=== PATIENT | female | born 1940 | race Caucasian/White ===

== ENCOUNTER 2018-05-12 13:39 | Day surgery (SDC) | payer MEDICARE, SELFPAY ==
[2018-05-04 12:35] VITALS: BMI 27.6
[2018-05-12] VITALS (7 sets, daily range): BP systolic 129–153; BP diastolic 68–87; PULSE 80–104; RESP 12–16; TEMP 36.1–36.6; O2SAT 95–97; BMI 27.6
--- NOTE | 2018-05-12 | DI.RAD.S_ITS ---
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 COMPARISON: [facility] Outside Film, MR, MR CERVICAL SPINE WITHOUT CONTRAST, 04/19/2018, 11:00. FINDINGS: Intraoperative intervertebral disc spacer present at what appears to be C6-7. There is good anatomic alignment hardware appears intact. IMPRESSION: Intraoperative images as above. Dictated by: Nory Gilliland M.D. on 05/12/2018 at 16:52 Approved by: Nory Gilliland M.D. on 05/12/2018 at 16:52
--- NOTE | 2018-05-12 15:00 | PM.PREOP ---
Pre-operative Note Interval Note Pre-op Check: Yes History & Physical Reviewed by Physician and Yes Exam Performed Changes: No
[2018-05-12] MEDS: LACTATED RINGERS 1,000 ML 42 ML IV (15:11)
[2018-05-12] MEDS: CEFAZOLIN 2 GM/100 ML FROZ.PIGGY IV (15:16)
--- NOTE | 2018-05-12 15:40 | SUR.OPER ---
Supine, head on gel donut. Arms padded with gel pads, tucked at sides, towel roll under shoulders. Safety belt at thigh. Legs uncrossed.
[2018-05-12] MEDS: BUPIVACAINE 0.5% (PF) VIAL 30 ML INJ (15:52)
[2018-05-12] MEDS: SODIUM CHLORIDE 0.9% 1,000 ML, GENTAMICIN 80 MG IRR (15:52)
[2018-05-12] MEDS: THROMBIN (BOVINE) 5,000 UNIT VIAL 5000 UNIT TOP (15:57)
--- NOTE | 2018-05-12 16:12 | P.OP_ITS ---
Operative Date/Time/Diagnoses Date of procedure: 05/12/18 Time of procedure: 16:11 Pre-op diagnosis: Cervical disc herniation with radiculopathy Post-op diagnosis: same Procedure & Clinicians Procedure: C6-7 anterior cervical diskectomy and artificial disc replacement Use of microscope Same procedure as scheduled: Yes Indications: [age] year old female with intractable pain from a cervical disc herniation. They had failed conservative management and requested operative intervention. Risks and benefits of surgery were discussed and appropriate consents were obtained. Surgeon: Donald Coe Sales Account Representative: Charity Campuzano Anesthesia Type: General Operative Notes Findings: none Closure Type: primary Specimen(s): none sent Implants & Drains: Norris LDR Mobi-C Estimated Blood Loss (mL): 5 Blood products transfused: none Procedure in detail: Patient was brought to the operating room and intubated on the table. A time-out was performed. Preoperative antibiotics were given. The neck was prepped and draped in the standard sterile fashion. Using a skin fold, we made a 3 cm oblique incision on the left side. We used Bovie to go through the platysma and then did a standard anterolateral blunt dissection down to the precervical fascia. Fascia was nicked and elevated up. A marker was placed and x-ray was taken for localization. We then subperiosteally elevated up the longus colli muscles. Self-retaining retractors were placed. [employer] pins were placed under x-ray guidance to be parallel to the endplates. We then brought in the microscope. A scalpel used to perform an annulotomy. We then used a combination of pituitaries and curettes and Kerrison to perform a complete anterior diskectomy at C6-7. We took down the PLL and used a nerve hook to fish out the large disc herniation. At the end we could from the nerve hook cephalad caudally and out the foramen and everything was opened. We distracted open with the parallel web user experience strategist. We then used the horseshoes for sizing. We then used the trials. We then inserted a 13 mm x 15 mm x 5 mm size Mobi-C artificial disc replacement under fluoroscopic guidance for positioning. The traction was released and x-ray was checked again. The self-retaining retractors and [employer] pins were removed and final x-rays taken. The wound was irrigated. There was no bleeding. The carotid was beating nicely. The platysma was closed. The superficial was closed. The skin was closed. A sterile dressing was placed. They were then extubated and brought to recovery room with no complications. Complications: none Condition: stable Disposition: PACU Plan for aftercare: Outpatient. Soft collar for comfort. Ten lb maximum lifting.
--- NOTE | 2018-05-12 16:50 | SUR.PHASEI ---
report given to Selma Tolliver RN
[2018-05-12] MEDS: HYDROCODONE/ACET 5/325 TABLET 1 TAB PO (16:57)
--- NOTE | 2018-05-12 17:19 | SUR.PHASEI ---
assumed care from andreai, dressing to neck c/d/i, soft collar intact, vss, maew no numbness or tingling and speech is clear and swallow intact. medicated with one norco after applesauce tolerated with no nausea. to opd.
--- NOTE | 2018-05-12 17:42 | SUR.PHASEII ---
Assumed care. Pt denied pain. Neck drsg cdi. Cervical collar in place. CMS wnl. Call light within reach. Spouse at bedside. Coffee and applesauce at bedside.
--- NOTE | 2018-05-12 18:42 | SUR.PHASEII ---
Pt's spouse left purse in waiting room. plant security guard stated it was locked in the safe. Registration said their co-worker was on break and she could not leave the desk. This RN waited with the patient until 1839 for the safe to open.
== END 2018-05-12 16:23 | disposition home or self-care (01) ==
PROVIDERS: PCP Family Medicine; Visit Provider Orthopaedic Surgery
PROC: (CPT 22856; principal; 2018-05-12 15:15)
DX: M50.10 Cervical disc disorder with radiculopathy, unspecified cervical region (principal)
CPT/HCPCS: 22856; 72040; 76000; C1776; J0690; J1100; J2250; J2405; J2704; J3010

== ENCOUNTER → 2018-06-15 09:35 | Outpatient (CLI) | payer MEDICARE, SELFPAY ==
--- NOTE | 2018-06-15 09:50 | DI.CT.S_ITS ---
PROCEDURE: CT ABDOMEN PELVIS WO CON INDICATIONS: left flank pain abdominal pain TECHNIQUE: Noncontrast 5 mm thick sections acquired from the diaphragms to the symphysis. 5 mm coronal and sagittal reformats were then performed. For radiation dose reduction, the following was used: automated exposure control, adjustment of mA and/or kV according to patient size. COMPARISON: [facility], CT, CT CHEST ABDOMEN PELVIS WITHOUT CONTRAST, 11/24/2017, 9:26. [facility], CT, CT ABDOMEN PELVIS WITHOUT CONTRAST, 12/26/2017, 10:50. FINDINGS: Image quality: Excellent. ABDOMEN: Lung bases: Lung bases are clear. Heart size is normal. Solid organs: Liver is normal in size. Gallbladder demonstrates minimal dependent calcification without wall thickening. Pancreas is normal in contours. Spleen is normal in size. No adrenal nodules. Significant right renal atrophy. There is mild left perirenal edema without obstruction. Left parapelvic cysts are noted. Ureteral diversion is noted. Peritoneum and bowel: Unenhanced bowel loops demonstrate normal wall thickness and caliber. No free fluid or air. Nodes and vessels: No retroperitoneal or mesenteric adenopathy by size criteria. Aorta and inferior vena cava are normal in caliber. Miscellaneous: No ventral hernias. PELVIS: Genitourinary: Bladder has been removed. Miscellaneous: No inguinal hernias or adenopathy. Bones: No suspicious bony lesions. No vertebral body compression fractures. IMPRESSION: 1. Minimal left renal edema and perinephric stranding without obstruction. This could represent a recently passed stone. Pyleonephritis cannot be excluded. Ultrasound or contrast CT is recommended for further evaluation. Dictated by: Nory Gilliland M.D. on 06/15/2018 at 10:25 Approved by: Nory Gilliland M.D. on 06/15/2018 at 11:26
== END ==
PROVIDERS: PCP Family Medicine; Visit Provider Physician Assistant
DX: R10.32 Left lower quadrant pain (principal)
CPT/HCPCS: 36415; 74176; 80053; 85025

== ENCOUNTER → 2018-06-15 09:57 | Outpatient (CLI) | payer MEDICARE, SELFPAY ==
[2018-06-15 10:24] LABS: Add Manual Diff / Slide Review NO; Basophils Percent Auto 0.8 % (0-2); Eosinophils Percent Auto 1.9 % (2-4); Hematocrit 40.9 % (36-46); Hemoglobin 14.3 g/dL (12.0-16.0); Lymphocytes Percent Auto 24.3 % (25-40); Mean Corpuscular HGB Conc 34.9 % (30-36); Mean Corpuscular Hemoglobin 32.2 PG (26-34); Mean Corpuscular Volume 92.4 fL (80-100); Monocytes Percent Auto 9.9 % (3-14); Neutrophils Absolute Auto 3500 /uL (3000-5900); Neutrophils Percent Auto 63.1 % (50-75); Platelet Count 255 X10^3/uL (150-400); Red Blood Cell Count 4.42 X10^6/uL (4.0-5.2); Red Cell Distribution Width 12.7 % (11.6-14.8); White Blood Cell Count 5.5 X10^3/uL (4.5-11.0)
[2018-06-15 10:58] LABS: Alanine Aminotransferase 20 IU/L (9-52); Albumin 4.3 g/dL (3.5-5.0); Albumin Globulin Ratio 1.5 (1.0-2.8); Alkaline Phosphatase 66 U/L (38-126); Aspartate Aminotransferase 23 IU/L (14-36); BUN Creatinine Ratio 14.6 (6-22); Bilirubin Total 0.6 mg/dL (0.2-1.3); Blood Urea Nitrogen 19 mg/dL (7-17); Calcium 9.7 mg/dL (8.4-10.2); Carbon Dioxide 25 mmol/L (22-32); Chloride 107 mmol/L (98-107); Estimated Glomerular Filt Rate 39.8 mL/min (>60); Globulin 2.9 g/dL (1.7-4.1); Glucose 107 mg/dL (80-110); HEMOLYSIS 25 (0-50); Potassium 5.2 mmol/L (3.4-5.1); Sodium 144 mmol/L (137-145); Total Protein 7.2 g/dL (6.3-8.2)
== END ==
PROVIDERS: PCP Family Medicine; Visit Provider Physician Assistant
DX: R10.32 Left lower quadrant pain (principal)
CPT/HCPCS: 36415; 80053; 85025

== ENCOUNTER → 2018-06-16 09:20 | Outpatient (CLI) | payer MEDICARE, SELFPAY ==
[2018-06-16 10:12] LABS: Appearance Urine UA CLOUDY; Bilirubin Urine UA NEGATIVE (NEGATIVE); Color Urine UA YELLOW; Glucose Urine UA NEGATIVE (Normal); Ketones Urine UA NEGATIVE (NEGATIVE); Leukocyte Esterase Urine UA 3+ (NEGATIVE); Nitrite Urine UA NEGATIVE (Negative); Occult Blood Urine UA TRACE-INTACT (Negative); Protein Urine UA NEGATIVE (Negative); Urobilinogen Urine UA 0.2 E.U./dL (0.2); pH Urine UA 6.5 (4.5-8.0)
[2018-06-16 10:51] LABS: Amorphous Sediment Urine 1+; Bacteria Urine Many (>30); Culture Indicated Urine Specimen Cultured; RBC Urine 1-5/HPF (0-5/HPF); WBC Urine >100/HPF (0-5/HPF)
== END ==
PROVIDERS: PCP Family Medicine; Visit Provider Physician Assistant
DX: R10.32 Left lower quadrant pain (principal)
CPT/HCPCS: 81001; 87077; 87086; 87186

== ENCOUNTER → 2018-11-22 10:09 | Outpatient (CLI) | payer MEDICARE, SELFPAY ==
[2018-11-22 10:38] LABS: Appearance Urine UA CLOUDY; Bilirubin Urine UA NEGATIVE (NEGATIVE); Color Urine UA YELLOW; Glucose Urine UA NEGATIVE (Negative); Ketones Urine UA NEGATIVE (NEGATIVE); Leukocyte Esterase Urine UA 3+ (NEGATIVE); Nitrite Urine UA POSITIVE (Negative); Occult Blood Urine UA 1+ (Negative); Protein Urine UA NEGATIVE (Negative); Specific Gravity Urine UA 1.015 (1.000-1.035); Urobilinogen Urine UA 0.2 E.U./dL (0.2)
[2018-11-22 10:49] LABS: Hemoglobin A1C% w Est Avg Glu 5.2 % (4.0-6.0)
[2018-11-22 10:50] LABS: Add Manual Diff / Slide Review NO; Basophils Absolute Auto 0 /uL (0-100); Basophils Percent Auto 0.7 % (0-2); Eosinophils Absolute Auto 200 /uL (0-450); Eosinophils Percent Auto 3.4 % (2-4); Hematocrit 41.3 % (36-46); Hemoglobin 14.4 g/dL (12.0-16.0); Lymphocytes Absolute Auto 1600 /uL (1100-4500); Lymphocytes Percent Auto 31.2 % (25-40); Mean Corpuscular HGB Conc 34.7 % (30-36); Mean Corpuscular Volume 92.3 fL (80-100); Monocytes Absolute Auto 500 /uL (0-900); Neutrophils Absolute Auto 2700 /uL (1500-7000); Neutrophils Percent Auto 54.7 % (50-75); Platelet Count 272 X10^3/uL (150-400); Red Blood Cell Count 4.48 X10^6/uL (4.0-5.2); Red Cell Distribution Width 12.3 % (11.6-14.8)
[2018-11-22 10:53] LABS: Bacteria Urine Many (>30); Culture Indicated Urine Specimen Cultured; RBC Urine 1-5/HPF (0-5/HPF); Squamous Epithelial Cell Urine 0-1 /HPF (0-5/HPF); WBC Urine >100/HPF (0-5/HPF)
[2018-11-22 11:37] LABS: BUN Creatinine Ratio 14.3 (6-22); Blood Urea Nitrogen 20 mg/dL (7-17); Calcium 9.6 mg/dL (8.4-10.2); Carbon Dioxide 27 mmol/L (22-32); Chloride 103 mmol/L (98-107); Estimated Glomerular Filt Rate 36.6 mL/min (>60); Glucose 91 mg/dL (80-110); HEMOLYSIS < 15 (0-50); Potassium 4.9 mmol/L (3.4-5.1); Sodium 139 mmol/L (137-145)
== END ==
PROVIDERS: PCP Family Medicine; Visit Provider Orthopaedic Surgery
DX: Z01.818 Encounter for other preprocedural examination (principal); Z01.812 Encounter for preprocedural laboratory examination; N39.9 Disorder of urinary system, unspecified; R73.9 Hyperglycemia, unspecified; Z13.1 Encounter for screening for diabetes mellitus
CPT/HCPCS: 36415; 80048; 81001; 83036; 85025; 87077; 87086; 87186; 93005; 93010

== ENCOUNTER 2018-12-01 11:36 | Inpatient (IN) | payer MEDICARE, SELFPAY ==
[2018-11-24 09:47] VITALS: BMI 27.8
[2018-12-01] VITALS (12 sets, daily range): BP systolic 103–159; BP diastolic 44–84; PULSE 62–83; RESP 16–18; TEMP 36.1–36.6; O2SAT 81–100; BMI 27.6
--- NOTE | 2018-12-01 | DI.RAD.S_ITS ---
PROCEDURE: XR PELVIS 1-2V INDICATIONS: INNER OP 1 VIEW TECHNIQUE: Intra-operative view of the pelvis and hip acquired. [facility] [place] [place], [facility] PELVIS WITH LATERAL HIP RIGHT, 11/28/2018, 15:03. FINDINGS: Bones: Intraoperative devices prior to placement of arthroplasty prostheses are in expected positions. No fractures or suspicious bony lesions. Soft tissues: Overlying surgical retractors are present, along with other intraoperative changes. IMPRESSION: Intraoperative views of right hip arthroplasty. Dictated by: Nory Gilliland M.D. on 12/01/2018 at 16:36 Approved by: Nory Gilliland M.D. on 12/01/2018 at 16:36
--- NOTE | 2018-12-01 06:00 | DI.RAD.S_ITS ---
PROCEDURE: XR HIP W PEL IF DONE RT 2V INDICATIONS: prosthesis placement TECHNIQUE: AP pelvis and lateral view of the right hip acquired. COMPARISON: None. FINDINGS: Bones: Patient is status post right hip arthroplasty, with hardware components in expected positions. The hip joint appears congruent. The visualized bony structures appear intact. Soft tissues: Overlying postoperative changes are noted. No suspicious soft tissue densities. IMPRESSION: Normal alignment after right total hip arthroplasty with a surgical drain overlying the operative bed. Dictated by: Anup Alvarez M.D. on 12/01/2018 at 17:12 Approved by: Anup Alvarez M.D. on 12/01/2018 at 17:13
[2018-12-01] MEDS: LACTATED RINGERS 1,000 ML 42 ML IV (12:22)
[2018-12-01] MEDS: ACETAMINOPHEN 325 MG TABLET 975 MG PO ×2 (12:22→20:46)
[2018-12-01] MEDS: CELECOXIB 200 MG CAPSULE PO (12:23)
[2018-12-01] MEDS: VANCOMYCIN 1,000 MG/200 ML FROZ.PIGGY 200 MG IV (13:21)
--- NOTE | 2018-12-01 13:23 | SUR.PREOP ---
SPOKE WITH DR. HURTADO REGARDING PT ALLERGY TO PCN IN RELATION TO CURRENT ORDER FOR ANCEF FOR SURGERY. PER DR. HURTADO OK TO CONTINUE WITH CURRENT PLACE FOR ANCEF FOR SURGERY. COMMUNICATED THIS WITH CIRCULATING RN D[place]. ALSO DISCUSSED WITH DR. HURTADO PT ONLY HAS ONE FUNCTIONING KIDNEY IN RELATION TO VANCOMYCIN ORDER. PER DR. HURTADO, WOULD LIKE TO CONTINUE WITH CURRENT ORDER FOR VANCOMYCIN.
[2018-12-01] MEDS: CEFAZOLIN 2 GM/100 ML FROZ.PIGGY IV ×2 (14:09→21:52)
[2018-12-01] MEDS: TRANEXAMIC ACID 1,000 MG VIAL 1000 MG INJ ×2 (14:20→16:04)
[2018-12-01] MEDS: BUPIVACAINE 0.25% W/ EPI 30 ML VIAL 60 ML INJ (14:37)
[2018-12-01] MEDS: BUPIVACAINE LIPOSOME 266 MG/20 ML VIAL INJ ×2 (14:37→14:38)
[2018-12-01] MEDS: POVIDONE-IODINE 15 ML, SODIUM CHLORIDE 0.9% 250 ML TOP (14:39)
--- NOTE | 2018-12-01 14:45 | SUR.OPER ---
Lateral on padded OR bed. Gel axillary roll. Arms secured on padded armboard with pillow supporting top arm. Padded hip positioner braces x4 - anterior and posterior chest and pelvis. Additional gel pad used anterior pelvis. Gel pad under bottom leg from knee to foot and secured with tape over sheet.
--- NOTE | 2018-12-01 17:39 | PC.NURSE ---
Lizzy shift note: Patient arrived to room 226 at 1730 from PACU S/P left NIDIA scheduled by Dr. Gan. Awake, alert, and pleasant. Oriented to room, environment, and plan of care. Posterior Aqaucel CDI, Hemovac secured. at bedside providing supportive care. Call light within reach.
[2018-12-01] MEDS: LACTATED RINGERS 1,000 ML 125 ML IV (17:53)
[2018-12-01] MEDS: OXYCODONE IR 5 MG TABLET PO (20:19)
[2018-12-01] MEDS: ASPIRIN EC 81 MG TABLET PO (20:46)
--- NOTE | 2018-12-01 23:10 | PM.PREOP ---
Pre-operative Note Interval Note History & Physical reviewed/Exam performed by Physician: Yes Changes to H&P: No
--- NOTE | 2018-12-01 23:12 | P.OP_ITS ---
Operative Date/Time/Diagnoses Date of procedure: 12/01/18 Time of procedure: 14:51 Pre-op diagnosis: Severe right hip OA Post-op diagnosis: same Procedure & Clinicians Procedure: Right total hip arthroplasty Same procedure as scheduled: Yes Indications: The patient has had progressively worsening right hip pain with radiographic changes consistent with arthritis. Non-operative management has failed and the patient has requested total hip replacement. The risks, benefits and alternatives to surgery were discussed with the patient prior to proceeding. Risks discussed included, but were not limited to, failure to relieve pain, leg length discrepancy, dislocation, stiffness, infection, nerve damage, deep venous thrombosis, pulmonary embolism, stroke, coma, heart attack, permanent paralysis and , as well as the potential need for eventual revision of the prosthetic. Surgeon: Tyra Gan Groundwater Monitoring Technician: Marixa Adler Anesthesia Type: General and Spinal Operative Notes Findings: Severe right hip arthritis, adequate stability Closure Type: primary Specimen(s): none sent Prosthetic devices, grafts, tissues, transplants, or devices: Gan [employer] Nephew anthology size 6 standard offset, 36 by -3 femoral head, 52 mm R3 cup Applied: drain(s) Estimated Blood Loss (mL): 250 Blood products transfused: none Procedure in detail: The patient was seen in the pre-operative area, where the patient identified the left hip as the operative site and this was marked with my initials. The patient received pre-operative antibiotics and was taken to the operating room and placed on the operative table in the right lateral decubitus position after satisfactory anesthesia. A full time paramedic out was performed. The left leg was prepared from the ankle to the iliac crest with ChloroPrep in the usual fashion and draped through sterile drapes. The hip was approached through an approximately 20 cm incision centered over the greater trochanter and curving gently posteriorly as it went proximally. This was carried sharply to the fascia suzy, which was divided and retracted with a self retaining retractor. The trochanteric bursa was excised with care being taken to avoid the sciatic nerve, which was identified and protected throughout the case. The short external rotators were incised and the capsulomuscular flap was raised and tagged for later repair. The hip was dislocated, and a femoral neck osteotomy performed approximately 15 mm above the lesser trochanter. Retractors were placed around the femur. The canal was opened with a box cutting osteotome, followed by a T handled reamer and a lateralizing reamer. The chili pepper broach was then used, followed by sequential broaching until there was good stability of the broach in the femur. Retractors were placed to expose the acetabulum. The labrum and central soft tissues were removed. Reaming was performed initially going up in 2 mm increments, then 1 mm increments until good bite was obtained with an odd sized reamer. The cup 1 mm larger than the last reamer was then inserted using the appropriate anteversion guides. A trial neutral liner was placed. The broach was placed in the canal. A trial head and neck were then placed and the hip relocated and checked for leg length and stability. An intraoperative film confirmed the component position and no evidence of fracture. The patient was stable in the position of sleep, of squatting, and could be put through a range of motion with 45 degrees internal rotation without dislocation. At 90 degrees flexion, internal rotation to 60 was possible before dislocation. This was felt to be satisfactory and the appropriate components were opened, and the trials were removed. She was noted to be tight preoperatively and did have somewhat of a hip abduction contracture. I specifically checked her in detail to assess her overall stability and also to make sure that we did not excessively lengthen her. It was felt that her offset had been slightly increased. Her leg lengths appeared appropriate clinically and radiographically. I also specifically checked the stem to see if I could tap it down an additional 1-2 mm. The stem had good rotational and axial stability. Her hip had acceptable overall stability with a -3 neck. The acetabular liner was impacted into position. The final stem was then impacted into the prepared femoral canal. A brief Betadine soak was performed while trialing with head options. The hip was meticulously irrigated with normal saline. Finally the femoral head was impacted onto the stem. The acetabulum was cleared of all material and the hip relocated one final time. The capsulomuscular flap was then repaired to the greater trochanter though an awl hole using the tag sutures. The short external rotators were repaired with a nonabsorbable suture. A deep drain was placed and brought out anteriorly. The fascia suzy was closed with Vicryl. The subcutaneous layer was closed with barbed sutures and SteriStrips. An Aquacel Ag dressing was applied and the patient was taken to recovery having tolerated the procedure well. Complications: none Condition: stable Disposition: Acute Care Plan for aftercare: The patient will be maintained on a standard total hip replacement protocol with weight bearing as tolerated and posterior hip precautions. The patient will receive Aspirin and sequential compression devices for DVT prophylaxis. The patient will be discharged home when safe for the home environment.
[2018-12-02] MEDS: OXYCODONE IR 5 MG TABLET PO (02:19)
[2018-12-02] MEDS: LACTATED RINGERS 1,000 ML 125 ML IV (02:20)
[2018-12-02 04:05] VITALS: BP 100/44; PULSE 56; RESP 18; TEMP 36.4; O2SAT 98
[2018-12-02] MEDS: CEFAZOLIN 2 GM/100 ML FROZ.PIGGY IV (05:46)
[2018-12-02 06:52] LABS: Hematocrit 35.6 % (36-46); Hemoglobin 12.7 g/dL (12.0-16.0)
[2018-12-02 07:26] VITALS: BP 117/66; PULSE 59; RESP 16; TEMP 36.8; O2SAT 97
--- NOTE | 2018-12-02 08:25 | P.DS_ITS ---
History of Present Illness Date Patient Seen: 12/02/18 Time Patient Seen: 08:25 Chief complaint: [id number] Narrative: The patient has had progressively worsening right hip pain with radiographic changes consistent with arthritis. Non-operative management has failed and the patient has requested total hip replacement. The risks, benefits and alternatives to surgery were discussed with the patient prior to proceeding. Risks discussed included, but were not limited to, failure to relieve pain, leg length discrepancy, dislocation, stiffness, infection, nerve damage, deep venous thrombosis, pulmonary embolism, stroke, coma, heart attack, permanent paralysis and , as well as the potential need for eventual revision of the prosthetic. Discharge Providers Date of admission: 12/01/18 11:36 Discharge Date: 12/02/18 Primary care physician: Jane Bryan MD Consults: 12/01/18 06:00 Consult to Anesthesiology Routine Comment: Consulting Provider: Anesthesiologist Reason for consultation: Regional block for post operative pain control Has provider been notified: Yes 12/01/18 17:21 Consult to Discharge Planning Routine Comment: Consult to Physical Therapy Evaluate & Treat Comment: Physician Instructions: post op NIDIA protocol Consult to Respiratory Therapy Evaluate & Treat Comment: Physician Instructions: Evaluate and treat Discharge provider: Charity Campuzano PA-C Summary Discharge Diagnosis: s/p NIDIA Hospital Course: huong was admitted for a right total hip arthroplasty with Dr. Gan. Hospital course unremarkable. POD 1 doing very well. She has mobilized with physical therapy throughout her stay. She is eating voiding without difficulty or assistance. She has all her postoperative appointment scheduled with physical therapy. She has all her of her prescriptions at home. Exam Vital Signs (past 8 hours): - 12/02/18 04:05 Temperature 97.6 F Pulse Rate 56 L Respiratory Rate 18 Blood Pressure 100/44 L Pulse Oximetry 98 Fraction of Inspired Oxygen 21 Oxygen Delivery Method Room Air Oxygen Flow Rate 0 Narrative Exam Narrative: Patient is sitting up in bed in no acute distress. She is alert and oriented x3. Dressing on right hip is CDI. Calves are, compressible, nontender bilaterally. Pulses are symmetrical. Sensation intact light touch throughout bilateral extremities. She states she had no pain issues last night. No complaints this morning. Objective Labs Result Diagrams: 12/02/18 06:25 Labs: Laboratory Results - last 24 hr 12/02/18 06:25 Hgb 12.7 Hct 35.6 L Discharge Plan Discharge Plan Patient Disposition: Home Discharge Med Rec/Prescriptions Prescriptions: New acetaminophen 325 mg Tablet 975 mg PO TID Qty: 60 RF: 0 meloxicam [Mobic] 7.5 mg Tablet 15 mg PO DAILY Qty: 30 RF: 0 docusate sodium [DOK] 100 mg Capsule 100 mg PO BID Qty: 60 RF: 0 Continued metoprolol succinate 25 mg Tablet Extended Release 24 Hr 25 mg PO DAILY RF: 0 calcium carbonate [Calcium 600] 600 mg calcium (1,500 mg) Tablet 600 mg PO DAILY RF: 0 Changed aspirin 81 mg Tablet,Delayed Release (Dr/Ec) 81 mg PO BID Qty: 0 RF: 0 Follow up/Referrals: Tyra Gan MD [Physician] - Skin/Wound/Dressing Care Report to your healthcare provider any signs of infection, such as:: chills, fev er and increased pain Dressing: leave in place until appointment Visit Report/Discharge Packet Instructions: DI for Hip Replacement Discharge Data Primary Care Provider: Jane Bryan Attending Provider: Tyra Gan Admit Date/Time: 12/01/18 11:36
[2018-12-02] MEDS: ASPIRIN EC 81 MG TABLET PO (08:56)
[2018-12-02] MEDS: MELOXICAM 7.5 MG TABLET 15 MG PO (08:56)
[2018-12-02 08:57] VITALS: BP 117/66; PULSE 64
[2018-12-02] MEDS: METOPROLOL ER 25 MG TABLET PO (08:57)
[2018-12-02] MEDS: ACETAMINOPHEN 325 MG TABLET 975 MG PO (08:57)
--- NOTE | 2018-12-02 09:20 | PT.IIE ---
Current Diagnoses Unilateral primary osteoarthritis, right hip (12/01/18) Surgery Performed Operation Date: 12/01/18 13:45 Actual Procedures p Total Hip Arthroplasty(Right) - Tyra Gan MD Surgical History (Last Updated 11/24/18 @ 09:59 by Jami Beckett, RN) H/O total hysterectomy with bilateral salpingo-oophorectomy (BSO) (Acute) History of bladder surgery (Acute) Hx of cervical discectomy (Acute 05/12/18) Status post bilateral cataract extraction (Acute) Medical History (Last Updated 05/05/18 @ 12:09 by Jami Beckett, RN) Arthritis (Acute) Bladder cancer (Acute) CAD (coronary artery disease) (Acute) GERD (gastroesophageal reflux disease) (Acute) HTN (hypertension) (Acute) Hyperlipidemia (Acute) Left humeral fracture (Acute) Myocardial infarct (Acute) Non-functioning kidney (Acute) Numbness and tingling in right hand (Acute) Physical Therapy Inpatient Evaluation/Re-Eval M1 PT/OT-IP Prior Functional Status Start: 12/02/18 13:07 Freq: NEEDED Status: Active Protocol: Document 12/02/18 09:20 AB (Rec: 12/02/18 13:31 AB [id number]) Medical Review Prior Functional Status Medical History Reviewed Yes Communication able to make needs known Mobility and Gait pt stated that she is independent with all mobility and ambulation without AD Social History Household Members spouse Living Arrangements House Number of Floors (Floors) One Floor Number of Stairs To Enter/Railing? pt stays on main level of the house has 1 step to enter Home Environment High Toilet Walk in Shower Home Equipment Front Wheel Walker Straight Cane Shower Seat without Backrest Hand Held Shower Insurance Inspector Grab Bars Near Toilet Grab Bars In Shower Employment Status Retired M2 PT-IP Current Condition Start: 12/02/18 13:07 Freq: NEEDED Status: Active Protocol: Document 12/02/18 09:20 AB (Rec: 12/02/18 13:31 AB [id number]) Physical Therapy Current Condition Current Condition Evaluation Date 12/02/18 Treatment Diagnosis s/p R NIDIA posterior approach; difficulty in walking Onset Date 12/01/18 Precautions Posterior Hip Precautions No Hip Flexion > 90 degrees No Hip Internal Rotation No Hip Adduction Weight Bearing Status Weight Bearing Status Weight Bear as Tolerated M3 PT-IP Subjective Start: 12/02/18 13:07 Freq: NEEDED Status: Active Protocol: Document 12/02/18 09:20 AB (Rec: 12/02/18 13:31 AB [id number]) Subjective Physical Therapy Visit Type Type Initial Evaluation Visit Start Time 09:20 Visit Stop Time 10:35 Total Visit Minutes 75 Number of PITCH GATHERER Visits 0 Physical Therapy Visit Comments Patient Comments pt agreeable to do PT; spouse present Patient Goals to go home Therapy Pain Assessment Pain When Pain Assessed At Rest Pain Present Pain Present Pain Reported Location Right Hip Intensity 3 Scale Used Numeric (1 - 10) Pain Management Techniques Re-positioning Timing of Activity with Medications M4 PT-IP Mobility and Gait Start: 12/02/18 13:07 Freq: NEEDED Status: Active Protocol: Document 12/02/18 09:20 AB (Rec: 12/02/18 13:31 [id number]) PT-Bed Mobility Assessment Supine to Sit Supine to Sit Standby Assistance Sit to Supine Sit to Supine Standby Assistance Scooting Scooting to Edge of Bed Standby Assistance PT-Transfer Assessment Sit to and From Stand Sit to and from Stand Standby Assistance 1 Person Assistance Equipment Transfer Assistive Device Bed Rail Front Wheeled Walker Orthotic/Prosthetic Devices or Brace: No Gait Assessment Gait Gait Assistance Required: Standby Assistance Distance (Feet) 200 Able to Maintain Weight Bearing Status Yes During Gait Assistive Devices Assistive Device Gait Belt Front Wheeled Walker Orthotic/Prosthetic Devices or Brace: No Gait Deviations General Gait Pattern Antalgic Decreased Stride Length Decreased Feet Clearance Factors Limiting Gait Function Factors Limiting Gait Function Decreased Activity Tolerance Decreased Strength Difficulty Following Directions Limited Range of Motion Pain Poor Balance Poor Safety Awareness Comments Gait Comments pt completed ambulation 200 ft x 2 using FWW SBA and cues for safety and to maintain hip precautions during turns. Stair Climbing Assessment Evaluation Level of Assist On Stairs Minimal Assistance Devices Stair Climbing Assistive Devices Front Wheel Walker Technique/Endurance Stair Climbing Direction Ascend and Descend Stair Climbing Technique Step to Step Number of Steps Climbed 1 Query Text: Stair Climbing Set # Repetitions (reps) 4 Comments Stair Climbing Comments caregiver training conducted with spouse to assist pt and completed safety. PT-Balance Assessment Sitting Balance and Reactions Static Sitting Balance Ability Good Dynamic Sitting Balance Ability Good Standing Balance and Reactions Static Standing Balance Ability Fair Dynamic Standing Balance Ability Fair Device Used FWW M5 PT-IP Objective Assessments Start: 12/02/18 13:07 Freq: NEEDED Status: Active Protocol: Document 12/02/18 09:20 AB (Rec: 12/02/18 13:31 AB [id number]) Orientation Orientation/Cognition Level of Alertness Alert Orientation Name Age Place Situation Safety Awareness Decreased Safety Awareness Memory Description Short Term Impaired Gross Range of Motion Lower Extremity ROM Assessment Within Functional Limits Strength Lower Extremity Strength Assessment Right Impaired Knee 3+/5 Coordination Assessment Gross Coordination Gross Coordination WNL Sensation Assessment Sensation Gross Sensation WNL Muscle Tone Muscle Tone WNL Yes M6 PT-IP Treatment Start: 12/02/18 13:07 Freq: NEEDED Status: Active Protocol: Document 12/02/18 09:20 AB (Rec: 12/02/18 13:31 AB [id number]) Physical Therapy Treatment Exercises Exercises Heel Slides Education Education Provided Precautions Weight Bearing Status Post-Op Packet Safety Other Treatments Other Treatment Performed reviewed R hip posterior precautions with pt and spouse . pt continues to require cues but spouse is able to remind and assist pt caregiver training conducted and spouse was able to assist pt safety. reviewed car transfer with pt and spouse. M7 PT-IP Assessment and Plan Start: 12/02/18 13:07 Freq: NEEDED Status: Active Protocol: Document 12/02/18 09:20 AB (Rec: 12/02/18 13:31 AB [id number]) PT Summary Assessment and Plan Potential Rehabilitation Potential Good Status of Condition at Evaluation Stable Summary Impairments Pain ROM Strength Balance Coordination Sensation Tone Cognition Bed Mobility Transfers Gait Activity Tolerance Assessment Summary pt requiring SBA wit mobility and will have spouse to assist her at home. pt plans to go home today. pt is set up for outpt PT. Goals Bed Mobility Goal Independent Transfer Goal Independent Front Wheeled Walker Gait Goal Independent Front Wheel Walker Gait Distance 250 Other Goals up/down 1 step using FWW SBA Days to Meet Goals 3 Frequency of Treatment Frequency Of Treatment Twice a Day Treatment Plan Physical Therapy Treatment Plan Bed Mobility Training Transfer Training Gait Training Therapeutic Exercise Balance Retraining Post Op Education Discharge Planning Hot or Cold Pack Neuromuscular Re-ed Coordination Retraining Manual Therapy Recommendations To Nursing Amount of Assist Needed Standby Assistance Discharge Recommendations PT Discharge Recommendations Home with Assistance Outpatient PT
[2018-12-02 10:38] VITALS: BP 113/75; PULSE 71
--- NOTE | 2018-12-02 11:35 | PC.NURSE ---
Patient alert and oriented x4, states pain well controlled with meloxicam and apap. vitals stable. Right hip c,m,s intact. aquacel dsg c,d,i. Hemovac removed per protocol. Iv removed, tip intact. Tolerated both well. Patient d/c home today with at 1145.
--- NOTE | 2018-12-02 15:01 | CM.IDA ---
Initial DCP Assessment Note: Pt is a 78 yo female, resident of [place], now POD#1 from rt hip surgery w/ Dr Gan. PCP: Jane Bryan Payer: Medicare/[employer] Reviewed chart, pt discussed in multidisciplinary rounds this morning. Therapy has cleared pt for return home w/family to assist and pt has planned for home, DC order from [facility] has already been initiated this morning. No needs expected from DC planning team although will remain available in case this changes today. MUSA Farris Discharge Planning/Care Management Advanced directive, confirm from FAMILY Start: 12/01/18 17:35 Freq: Q24H Status: Discharge Protocol: Document 12/01/18 17:35 KMD (Rec: 12/01/18 17:38 KMD [id number]) Advance Directive, confirm on record Time 17:38 Person contacted Family Copy received No CM Discharge Assessment Start: 12/02/18 14:59 Freq: Status: Discharge Protocol: Document 12/02/18 14:59 TONI (Rec: 12/02/18 15:01 TONI [id number]) Discharge Planning Assessment Assigned Bleach Maker MUSA Campos DPOA/Assigned Designee Name Memo Powell, spouse Contact Information [phone], Advance Directives? Yes Advance Directives on File No History Provided By Patient Prior Living Arrangements House Household Members spouse Type of transporation used prior to Drives own vehicle admit Independent with ADL's Yes Is patient alert and oriented? Yes Barriers to Discharge No Discharge Plan Home Transportation Arrangement Family Referrals Initiated None needed
== END 2018-12-02 11:39 | disposition home or self-care (01) | DRG 470 ==
PROVIDERS: Admitting Provider Orthopaedic Surgery; PCP Family Medicine; Visit Provider Orthopaedic Surgery
PROC: 0SR90JZ Replacement of Right Hip Joint with Synthetic Substitute, Open Approach (ICD-10-PCS; CPT 27130; principal; 2018-12-01 13:45)
DX: M16.11 Unilateral primary osteoarthritis, right hip (principal); Z93.6 Other artificial openings of urinary tract status; Z87.891 Personal history of nicotine dependence
CPT/HCPCS: 36415; 72170; 73502; 85014; 85018; 94760; 94762; 97116; 97161; 97530; C1776; C9290; J0690; J1100; J2250; J2405; J2704; J3370